=== PATIENT | male | born 1945 | race Asian ===

== ENCOUNTER 2023-03-14 16:58 | Inpatient (IN) | payer MEDICARE ==
[~2023-03-14] VITALS: Ht 172.7 cm; Wt 64.9 kg
[2023-03-14] MEDS ORDERED: PANT40TA49 PO (17:25)
[2023-03-14] MEDS ORDERED: URSO500T PO (17:25)
[2023-03-14] MEDS ORDERED: MULT-594 PO (17:25)
[2023-03-14] MEDS ORDERED: TRIA60LO14 TP (17:25)
[2023-03-14] MEDS ORDERED: RIFA550T PO (17:25)
[2023-03-14] MEDS ORDERED: MEGE20TA4 PO (17:25)
[2023-03-14] MEDS ORDERED: INSU100C4 SQ (17:25)
[2023-03-14] MEDS ORDERED: LACT10SO58 PO (17:25)
[2023-03-14] MEDS ORDERED: DAPA10TA PO (17:25)
[2023-03-14] MEDS ORDERED: INSU3INS6 SQ (17:25)
[2023-03-14 17:41] LABS: BASOPHILS % (AUTO) 0.3 % (0.0-2.0); EOSINOPHILS % (AUTO) 0.4 % (0.0-7.0); HEMATOCRIT 32.4 % (36.7-47.1); HEMOGLOBIN 10.8 g/dL (12.5-16.3); LYMPHOCYTES # (AUTO) 2.4 K/uL (0.8-4.8); LYMPHOCYTES % (AUTO) 20.2 % (20.5-51.5); MEAN CORPUSCULAR HEMOGLOBIN 35.4 uug (23.8-33.4); MEAN CORPUSCULAR HGB CONC 33 g/dL (32.5-36.3); MONOCYTES # (AUTO) 0.9 K/uL (0.1-1.30); MONOCYTES % (AUTO) 7.4 % (0.0-11.0); NEUTROPHILS # (AUTO) 8.4 K/uL (1.8-8.9); NEUTROPHILS % (AUTO) 71.7 % (38.5-71.5); PLATELET COUNT (AUTO) 437 K/uL (152-348); RED BLOOD CELL COUNT(AUTO) 3.06 MIL/uL (4.06-5.63); RED CELL DISTRIBUTION WIDTH 18.3 % (12.1-16.2); WHITE BLOOD COUNT (AUTO) 11.7 K/uL (3.6-10.2)
[2023-03-14 17:47] LABS: DIFFERENTIAL COMMENT 1
[2023-03-14] MEDS ORDERED: LORAZEPAM 2 MG/1 ML VIAL IV PRN (18:00)
[2023-03-14] MEDS ORDERED: ONDANSETRON 4 MG/2 ML VIAL IV PRN (18:00)
[2023-03-14] MEDS ORDERED: REMEDY ESSENTIAL ZINC PASTE 113 GM TP PRN (18:00)
[2023-03-14] MEDS ORDERED: MORPHINE SULFATE 2 MG/1 ML DISP.SYRIN IV PRN (18:00)
[2023-03-14] MEDS ORDERED: MAGNESIUM HYDROXIDE 30 ML LIQUID UDC PO PRN (18:00)
[2023-03-14] MEDS ORDERED: ACETAMINOPHEN 325 MG TABLET PO PRN (18:00)
[2023-03-14 18:04] LABS: ALANINE AMINOTRANSFERASE 76 U/L (16-63); ALBUMIN 2.1 g/dL (3.4-5.0); ALKALINE PHOSPHATASE 295 U/L (50-136); ASPARTATE AMINOTRANSFERASE 143 U/L (15-37); BILIRUBIN,TOTAL 26.5 mg/dL (0.2-1.0); CALCIUM 7.7 mg/dL (8.5-10.1); CARBON DIOXIDE 10 mmol/L (21-32); CHLORIDE 104 mmol/L (98-107); GLUCOSE 130 mg/dL (74-106); POTASSIUM 5.8 mmol/L (3.5-5.1); SODIUM SERUM 136 mmol/L (136-145); TOTAL PROTEIN, SERUM 7.4 g/dL (6.4-8.2)
[2023-03-14 18:10] LABS: UREA NITROGEN, BLOOD 152 mg/dL (7-18)
[2023-03-14] MEDS ORDERED: DEXTROSE 50% 50 ML DISP.SYRIN IV ONE (18:15)
[2023-03-14] MEDS ORDERED: SODIUM BICARBONATE 8.4% 50 MEQ/50 ML DISP.SYRIN IV ONE ×2 (18:15→19:10)
[2023-03-14] MEDS ORDERED: INSULIN REGULAR, HUMAN 300 UNIT/3 ML VIAL IV ONE (18:15)
[2023-03-14] MEDS ORDERED: ALBUTEROL SULFATE 2.5 MG/3 ML NEBU NEB ONE (18:15)
[2023-03-14] MEDS: PANTOPRAZOLE SODIUM 40 MG VIAL IV SCH (18:20)
[2023-03-14] MEDS ORDERED: ALBUTEROL SULFATE 2.5 MG/ 0.5 ML NEBU ONE (18:22)
[2023-03-14] MEDS ORDERED: ALBUTEROL SULFATE 2.5 MG/3 ML NEBU ONE (18:26)
[2023-03-14 18:30] VITALS: O2SAT 97
[2023-03-14 18:40] VITALS: O2SAT 99
[2023-03-14] MEDS ORDERED: DEXTROSE 50% 50 ML DISP.SYRIN ONE (19:09)
[2023-03-14] MEDS ORDERED: INSULIN REGULAR, HUMAN 300 UNIT/3 ML VIAL ONE (19:10)
[2023-03-14 20:40] VITALS: BP 136/69; TEMP 97.7; O2SAT 99
[2023-03-14] MEDS: IV NS 1000 ML 1,000 ML IV PRN (21:59)
[2023-03-15 05:00] VITALS: BP 109/55; TEMP 97.7; O2SAT 99
[2023-03-15 08:41] LABS: BASOPHILS % (AUTO) 0.2 % (0.0-2.0); EOSINOPHILS % (AUTO) 0.1 % (0.0-7.0); LYMPHOCYTES # (AUTO) 0.7 K/uL (0.8-4.8); MEAN CORPUSCULAR HEMOGLOBIN 36.7 uug (23.8-33.4); MEAN CORPUSCULAR HGB CONC 35 g/dL (32.5-36.3); MEAN CORPUSCULAR VOLUME 105.5 fL (73.0-96.2); MONOCYTES # (AUTO) 0.6 K/uL (0.1-1.30); NEUTROPHILS # (AUTO) 9.1 K/uL (1.8-8.9); NEUTROPHILS % (AUTO) 86.7 % (38.5-71.5); PLATELET COUNT (AUTO) 266 K/uL (152-348); RED CELL DISTRIBUTION WIDTH 18.8 % (12.1-16.2); WHITE BLOOD COUNT (AUTO) 10.5 K/uL (3.6-10.2)
[2023-03-15 09:14] LABS: ALANINE AMINOTRANSFERASE 64 U/L (16-63); ALBUMIN 1.7 g/dL (3.4-5.0); ALKALINE PHOSPHATASE 238 U/L (50-136); ASPARTATE AMINOTRANSFERASE 128 U/L (15-37); BILIRUBIN,TOTAL 21.4 mg/dL (0.2-1.0); CHLORIDE 107 mmol/L (98-107); DIFFERENTIAL COMMENT 1; GLUCOSE 72 mg/dL (74-106); MAGNESIUM 2.7 mg/dL (1.8-2.4); POTASSIUM 5.5 mmol/L (3.5-5.1); RED BLOOD CELL COUNT(AUTO) 2.46 MIL/uL (4.06-5.63); SODIUM SERUM 139 mmol/L (136-145)
[2023-03-15 09:24] LABS: CARBON DIOXIDE 8 mmol/L (21-32); CREATININE 9.3 mg/dL (0.6-1.3); PHOSPHOROUS 10.2 mg/dL (2.5-4.9); UREA NITROGEN, BLOOD 154 mg/dL (7-18)
[2023-03-15] MEDS: PANTOPRAZOLE SODIUM 40 MG VIAL IV SCH (09:59)
[2023-03-15 11:35] VITALS: BP 108/53; TEMP 97.9; O2SAT 99
[2023-03-15] MEDS: IV NS 1000 ML 1,000 ML IV PRN (12:10)
[2023-03-15 15:41] VITALS: BP 96/48; TEMP 97.9; O2SAT 98
[2023-03-16] MEDS ORDERED: PANTOPRAZOLE SODIUM 40 MG TABLET.DR PO SCH (07:00)
== END 2023-03-15 19:00 | disposition hospice, home (50) | DRG 435 ==
LOC: ER 17:06 → MEDSURG3 20:11
PROVIDERS: ADMIT Nurse Practitioner Acute Care; ATTEND Nurse Practitioner Acute Care
DX: C22.1 Intrahepatic bile duct carcinoma (principal); E43 Unspecified severe protein-calorie malnutrition; E87.20 Acidosis, unspecified; N17.9 Acute kidney failure, unspecified; R62.7 Adult failure to thrive; K72.90 Hepatic failure, unspecified without coma; Z66 Do not resuscitate; Z51.5 Encounter for palliative care; Z85.51 Personal history of malignant neoplasm of bladder; E87.5 Hyperkalemia; D75.839 Thrombocytosis, unspecified; K74.60 Unspecified cirrhosis of liver; Z85.72 Personal history of non-Hodgkin lymphomas; Z92.21 Personal history of antineoplastic chemotherapy; Z79.4 Long term (current) use of insulin; Z79.899 Other long term (current) drug therapy; E11.22 Type 2 diabetes mellitus with diabetic chronic kidney disease; N18.9 Chronic kidney disease, unspecified; I13.10 Hypertensive heart and chronic kidney disease without heart failure, with stage 1 through stage 4 chronic kidney disease, or unspecified chronic kidney disease; E83.51 Hypocalcemia; D53.9 Nutritional anemia, unspecified; Z79.84 Long term (current) use of oral hypoglycemic drugs
CPT/HCPCS: 36415; 71045; 83605; 83735; 84100; 84484; 85025; 85730; 87040; 93005; A4663; C9113; G0378; J1815; J3490; J7040